=== PATIENT | female | born 1950 | race Caucasian/White ===

== ENCOUNTER → 2019-12-12 | Outpatient (CLI) | payer MEDICARE ==
[~2019-12-12] MED LIST: ATOR-2 PO; CHOL10003 PO; CLON-364 PO; HYDROCHLOROTH12.5 MG PO; LACT1CAP35 PO; LOSA100T14 PO; METO25TA91 PO; MULT1TAB60 PO; OMEP40CA42 PO; ZOLP-413 PO
[2019-12-12 12:30] LABS: ALANINE AMINOTRANSFERASE 27 U/L (12-78); ALBUMIN 3.5 g/dL (3.4-5.0); ANION GAP 5 mmol/L (5-15); CALCIUM 8.8 mg/dL (8.5-10.1); CHLORIDE 107 mmol/L (98-107); CREATININE 0.72 mg/dL (0.55-1.02)
[2019-12-12 12:33] LABS: ALKALINE PHOSPHATASE 65 U/L (45-117); BILIRUBIN,TOTAL 0.5 mg/dL (0.2-1.0); TOTAL PROTEIN 6.8 g/dL (6.4-8.2)
== END | disposition home or self-care (01) ==
LOC: STAR 11:20
PROVIDERS: ATTEND Internal Medicine
DX: Z01.818 Encounter for other preprocedural examination (principal); R00.1 Bradycardia, unspecified; K62.1 Rectal polyp
CPT/HCPCS: 36415; 80053; 93005

== ENCOUNTER 2019-12-16 10:46 | Day surgery (SDC) | payer MEDICARE ==
[~2019-12-16] VITALS: Ht 162.6 cm; Wt 58.1 kg
[2019-12-16] MEDS ORDERED: LACTATED RINGERS 1,000 ML IV SCH (11:01)
[2019-12-16] MEDS ORDERED: CHLORHEXIDINE 15 ML UDC MM ONE (11:30)
[2019-12-16] MEDS ORDERED: LIDOCAINE-MPF 1%, 2ML INFIL ONE (11:30)
[2019-12-16 11:32] VITALS: BP 131/75
[2019-12-16] MEDS ORDERED: LIDOCAINE-MPF 2% ,5ML ONE (11:57)
[2019-12-16] MEDS ORDERED: PROPOFOL 10 MG/ML, 20ML ONE (11:57)
== END 2019-12-16 14:15 | disposition home or self-care (01) ==
LOC: OUT 10:46
PROVIDERS: ATTEND Internal Medicine
DX: K62.0 Anal polyp (principal); Z11.59 Encounter for screening for other viral diseases; D12.8 Benign neoplasm of rectum; K57.30 Diverticulosis of large intestine without perforation or abscess without bleeding; K21.9 Gastro-esophageal reflux disease without esophagitis; K44.9 Diaphragmatic hernia without obstruction or gangrene; K22.70 Barrett's esophagus without dysplasia; I10 Essential (primary) hypertension; E78.5 Hyperlipidemia, unspecified; Z79.899 Other long term (current) drug therapy; Z87.891 Personal history of nicotine dependence; Z88.8 Allergy status to other drugs, medicaments and biological substances; Z90.49 Acquired absence of other specified parts of digestive tract; Z82.49 Family history of ischemic heart disease and other diseases of the circulatory system; Z80.9 Family history of malignant neoplasm, unspecified
CPT/HCPCS: 45390; 88305; A4648; J2704; J7120; U0001